=== PATIENT | female | born 1990 | race Caucasian/White ===

== ENCOUNTER 2016-09-30 07:27 | Emergency (ER) | payer BC ==
[2016-09-30] MEDS ORDERED: NS 0.9% 1000 ML* 1,000 ML IV ONE (07:51)
[2016-09-30] MEDS ORDERED: Ketorolac INJ* 30 MG/ML 1 ML VIAL IV PUSH ONE (07:51)
[2016-09-30] MEDS ORDERED: PROCHLORPERAZINE INJ 5 MG/ML 2 ML VIAL IV ONE (07:53)
[2016-09-30] MEDS ORDERED: diPHENhydraMINE IV* 50 MG/ML 1 ml VIAL (BENADRYL) IV ONE (07:54)
--- NOTE | 2016-09-30 08:05 | ED ---
Headache - HPI Summary HPI Summary: Pt here w/ DUKE x 1 week. She had nausea w/ vomiting and diarrhea last Thursday - reports the GI bug was going around so figured this is what she had. This then progressed into a "migraine" headache - Rt sided DUKE - radiating from Rt caodaism back to Rt neck - worse w/ lying down. Associated sx of nausea, photophobia, phonophobia, fatigue. Gets these frequently adn they're usually relieved w/ ibuprofen but she is unable to break the cycle at this time. Frustrated and crying as she just can't feel better. Denies fever, chills, URI sx, skin changes, tingling but has had intermittent areas of numbness - not consistently felt in any one location - reports these have been noticed one time after waking up from resting - noticed in her Left cheek, vaginal area and arm - lasted seconds and have not returned since - no weakness, facial asymmetry. This is not typical with her migraines but did experience these sx when she had meningitis at the age of 17 y.o - had carlee facial asymmetry then. Admits she carries her tension in her shoulders - always tight here. - History Of Current Complaint Chief Complaint: EDHeadache Stated Complaint: MIGRAINE FOR A WEEK Time Seen by Provider: 09/30/16 07:41 Hx Obtained From: Patient - Allergies/Home Medications Allergies/Adverse Reactions: Allergies Allergy/AdvReac Type Severity Reaction Status Date / Time No Known Allergies Allergy Verified 09/30/16 07:29 PMH/Surg Hx/FS Hx/Imm Hx Previously Healthy: Yes Endocrine/Hematology History: Denies: Hx Anticoagulant Therapy, Hx Blood Disorders, Hx Thyroid Disease, Hx Unexplained Bleeding, Hx Coagulopothy, Autoimmune Disease Neurological History: Reports: Hx Migraine - self-diagnosed Infectious Disease History: No Infectious Disease History: Denies: Hx Clostridium Difficile, Hx Hepatitis, Hx Human Immunodeficiency Virus (HIV), Hx of Known/Suspected MRSA, Hx Shingles, Hx Tuberculosis, Hx Known/ Suspected VRE, Hx Known/Suspected VRSA, History Other Infectious Disease, Traveled Outside the [place] in Last 30 Days - Family History Known Family History: Positive: Other - mom-migraines - Social History Occupation: Employed Full-time Lives: With Family Alcohol Use: Occasionally Hx Substance Use: No Substance Use Type: Reports: None Hx Tobacco Use: No Smoking Status (MU): Never Smoked Tobacco Review of Systems Positive: Fatigue. Negative: Fever, Chills Positive: Photophobia. Negative: Blurred Vision, Diplopia, Drainage, Erythema ENT: Negative Cardiovascular: Negative Respiratory: Negative Gastrointestinal: Other - see HPI Positive: no symptoms reported Musculoskeletal: Other - see HPI Skin: Negative Neurological: Other - see HPI Psychological: Normal - concerned All Other Systems Reviewed And Are Negative: Yes Physical Exam Triage Information Reviewed: Yes Vital Signs On Initial Exam: Initial Vitals Temp Pulse Resp BP Pulse Ox 98.4 F 86 15 149/93 100 09/30/16 07:30 09/30/16 07:30 09/30/16 07:30 09/30/16 07:30 09/30/16 07:30 Vital Signs Reviewed: Yes Appearance: Positive: Well-Appearing, Well-Nourished, Pain Distress Skin: Positive: Warm, Dry Head/Face: Positive: Normal Head/Face Inspection Eyes: Positive: Normal, EOMI, SEBASTIAN, Conjunctiva Clear ENT: Positive: Normal ENT inspection, Hearing grossly normal, Pharynx normal, TMs normal. Negative: Nasal congestion, Nasal drainage, Tonsillar swelling, Tonsillar exudate Neck: Positive: Supple, Nontender, No Lymphadenopathy Respiratory/Lung Sounds: Positive: Clear to Auscultation, Breath Sounds Present Cardiovascular: Positive: Normal, RRR, S1, S2. Negative: Murmur, Rub Abdomen Description: Positive: Nontender, No Organomegaly, Soft Bowel Sounds: Positive: Present Musculoskeletal: Positive: Normal, Strength/ROM Intact Neurological: Positive: Normal, Sensory/Motor Intact, Alert, Oriented to Person Place, Time, CN Intact II-III, Other - no nuchal rigidity, (-) Kernig, (-) Brudzinski Psychiatric: Positive: Normal Diagnostics - Vital Signs Vital Signs Temp Pulse Resp BP Pulse Ox 09/30/16 07:30 98.4 F 86 15 149/93 100 - Laboratory Result Diagrams: 09/30/16 08:05 09/30/16 08:05 Lab Statement: Any lab studies that have been ordered have been reviewed, and results considered in the medical decision making process. Re-Evaluation - Re-Evaluation First Eval Change: Improved - headache, nausea improved s/p migraine cocktail - no return of paresthesia sx - feels better - tolerating PO fluids well Headache Course/Dx - Course Course Of Treatment: Suspect pt's shoulder m tension is triggering tension DUKE, leading to migraines. This most recent DUKE appears to be a migraine triggered by recent gastroenteritis leading to dehydration and possibly exacerbation of tension DUKE w/ muscle contractions w/ vomiting. Pt does not present w/ meningitis clinically and sx improved s/p migraine cocktail. Will provide brief course of migraine tx for the next few days however encouraged pt to discuss w/ PCP for more in depth w/u. Also reviewed danger s/sx of when to return to ED. Pt voices understanding and agrees w/ plan. - Diagnoses Provider Diagnoses: Migraine headache, Tension headache Discharge - Discharge Plan Condition: Stable Disposition: HOME Prescriptions: Ondansetron ODT TAB* [Zofran Odt TAB*] 4 mg PO Q8H PRN #9 tab.odt PRN Reason: Nausea Patient Education Materials: Migraine Headache (ED), Dehydration (ED) Forms: *Work Release Referrals: No Primary Care Phys,NOPCP [Primary Care Provider] - [facility] [Outside] Additional Instructions: Rest Take meds a needed - ibuprofen 800mg every 8 hours with food as needed for headache, benadryl 25mg every 6 hours as needed for nausea/headache, zofran 4 mg every 8 hours as needed for nausea Stay hydrated Follow-up with PCP this week *If you develop worsening of headache, visual change, weakness, fever, neck/ back pain, return to ED
[2016-09-30 08:41] LABS: Hematocrit 42 % (35-47); Mean Corpuscular HGB Conc 34 g/dl (31-36); Mean Corpuscular Hemoglobin 29 pg (27-31); Mean Corpuscular Volume 85 fL (80-97); Mean Platelet Volume 10 um3 (7.4-10.4); Red Blood Count 4.88 10^6/ul (4.0-5.4); Red Cell Distribution Width 13 % (10.5-15); White Blood Count 11.2 10^3/ul (3.5-10.8)
[2016-09-30 08:50] LABS: Albumin 4.1 g/dL (3.2-5.2); BUN/Creatinine Ratio 17.3 (8-20); C Reactive Protein 3.34 mg/L (< 5.00); Calcium 9.3 mg/dL (8.6-10.3); EGFR African American 119.2 (>60); EGFR Non-African American 92.7 (>60); Globulin 3.1 g/dL (2-4); Total Bilirubin 0.4 mg/dL (0.2-1.0); Total Protein 7.2 g/dL (6.4-8.9)
[2016-09-30 10:02] VITALS: BP 124/76
== END 2016-09-30 10:01 | disposition home or self-care (01) ==
LOC: ED 07:27
DX: G44.209 Tension-type headache, unspecified, not intractable (principal); G43.909 Migraine, unspecified, not intractable, without status migrainosus; R11.2 Nausea with vomiting, unspecified; H53.149 Visual discomfort, unspecified
CPT/HCPCS: 36415; 80053; 83605; 85025; 86140; 96374; 96375; 99282; J0780; J1200; J1885